=== PATIENT | female | born 1990 | race Caucasian/White ===

== ENCOUNTER → 2021-09-10 | Outpatient (CLI) | payer OTHER ==
[~2021-09-10] MED LIST: PHENERGAN 12.12.5 M1 PO; PRILOSEC OTC20 MG PO; ZOFRAN4 MG PO
== END ==
LOC: GENOP 17:07
DX: O47.03 False labor before 37 completed weeks of gestation, third trimester (principal); Z3A.37 37 weeks gestation of pregnancy
CPT/HCPCS: 81001; G0463

== ENCOUNTER 2021-09-21 05:38 | Inpatient (IN) | payer OTHER ==
[~2021-09-21] VITALS: Ht 157.5 cm; Wt 79.4 kg
[2021-09-21 06:13] LABS: HEMOGLOBIN 9.5 gm/dl (12.3-15.3); RED BLOOD COUNT 3.82 M/UL (4.00-5.10); WHITE BLOOD COUNT 7.6 K/UL (4.5-11.0)
[2021-09-21] MEDS ORDERED: PHENERGAN 25 MG25 M1 PO (06:19)
[2021-09-21] MEDS ORDERED: FAMOTIDINE20 MG PO (06:19)
[2021-09-21] MEDS ORDERED: DOCUSATE SODIU100 MG PO ×2 (06:19→08:24)
[2021-09-21] MEDS ORDERED: FEROSUL325 MG PO ×2 (06:20→08:24)
[2021-09-21] MEDS ORDERED: GUMMIES CHILDR1 EACH PO (06:21)
[2021-09-21] MEDS ORDERED: IBUPROFEN600 MG PO (08:24)
[2021-09-21] MEDS ORDERED: HYDROCODON-ACE1 EAC4 PO (08:24)
[2021-09-22 04:57] LABS: HEMOGLOBIN 8.8 gm/dl (12.3-15.3)
== END 2021-09-22 20:10 | disposition home or self-care (01) | DRG 787 ==
LOC: OB 05:38
PROVIDERS: ADMIT Obstetrics & Gynecology
PROC: 4A1HXCZ Monitoring of Products of Conception, Cardiac Rate, External Approach (ICD-10-PCS; 2021-09-21)
PROC: 3E0234Z Introduction of Serum, Toxoid and Vaccine into Muscle, Percutaneous Approach (ICD-10-PCS; 2021-09-21)
PROC: 10D00Z1 Extraction of Products of Conception, Low, Open Approach (ICD-10-PCS; principal; 2021-09-21 07:30)
DX: O34.211 Maternal care for low transverse scar from previous cesarean delivery (principal); D62 Acute posthemorrhagic anemia; Z20.822 Contact with and (suspected) exposure to COVID-19; O99.02 Anemia complicating childbirth; Z3A.39 39 weeks gestation of pregnancy; Z37.0 Single live birth; Z28.310 Unvaccinated for COVID-19; Z88.8 Allergy status to other drugs, medicaments and biological substances; Z82.49 Family history of ischemic heart disease and other diseases of the circulatory system; Z80.8 Family history of malignant neoplasm of other organs or systems; Z23 Encounter for immunization
CPT/HCPCS: 36415; 81001; 82800; 85014; 85018; 85025; 86850; 86900; 86901; 90471; 90715; C9113; J1580; J1885; J2270; J2274; J2405; J2590; J3010